=== PATIENT | male | born 1995 | race Caucasian/White ===

== ENCOUNTER → 2017-01-31 | Outpatient (CLI) | payer OTHER ==
[~2017-01-31] MED LIST: AMOX875T2 PO; FLON1SPR; HYDR-4274 PO; METHACHOLINE KIT (J7674) INH ONE; SERT50TA PO; TRAZO50TA PO; ZOLO50TA PO
--- NOTE | 2017-01-31 11:24 | PFTRPT ---
Site: [facility], [address] [place], [address] ID: [id number] Name: KAPIL MONSALVE Doctor: Ralph Waldron MD Tech: Azeb SWANSON RRT Age: 21 Sex: Male Race: Height: 67.50 Inches Weight: 230.00 Lbs BSA: 2.16 Diagnosis: R06.00 of albuterol for postbronchodilator. Pre-Bronch Post-Bronch Pred Actual %Pred Actual %Chng SPIROMETRY FVC (L) 5.16 4.57 88 4.50 -1 FEV1 (L) 4.31 4.03 93 3.90 -3 FEV1/FVC (%) 83 88 106 87 -1 FEF 25% (L/sec) 8.89 8.46 95 6.86 -18 FEF 50% (L/sec) 6.43 5.76 89 5.51 -4 FEF 75% (L/sec) 2.38 2.49 104 2.22 -11 FEF 25-75% (L/sec) 4.60 4.98 108 4.44 -10 FEF Max (L/sec) 9.60 8.98 93 7.63 -14 FIVC (L) 4.18 4.16 FIF 50% (L/sec) 5.68 4.48 78 5.76 28 FIF Max (L/sec) 4.59 5.85 27
== END ==
LOC: M CARPUL 10:26
PROVIDERS: ATTEND Internal Medicine Pulmonary Disease
DX: R06.00 Dyspnea, unspecified (principal)

== ENCOUNTER → 2017-05-03 | Outpatient (CLI) | payer OTHER ==
[~2017-05-03] VITALS: Ht 172.7 cm; Wt 111.1 kg
[~2017-05-03] MED LIST changes: +ABIL10TA9 PO; +AMBI10TA PO; -HYDR-4274 PO; +HYDR50TA70 PO; +LIDOCAINE 2% INJ 100 MG/5 ML SDV (FOR ANES.) As Ordered ONE; -METHACHOLINE KIT (J7674) INH ONE; +NS 1,000 ML IV ONE; +PROAAER10 INH; +PROPOFOL 500 MG/50 ML VIAL As Ordered ONE
--- NOTE | 2017-05-03 09:06 | ROOR ---
Patient Name: Ismael Haque Procedure Date: 05/03/2017 8:36 AM Date of : 1995 Age: 22 Room: [facility] Gender: Male Note Status: Finalized Procedure: Total Colonoscopy to Cecum + ileoscopy + Bx Indications: Clinically significant diarrhea of unexplained origin Providers: Louie Morales MD Referring MD: CHAD BONILLA MD Requesting Provider: Medicines: Monitored Anesthesia Care Complications: No immediate complications. Procedure: Pre-Anesthesia Assessment: - The heart rate, respiratory rate, oxygen saturations, blood pressure, adequacy of pulmonary ventilation, and response to care were monitored throughout the procedure. The Colonoscope was introduced through the anus and advanced to the cecum, identified by appendiceal orifice and ileocecal valve. The colonoscopy was performed without difficulty. The patient tolerated the procedure well. The quality of the bowel preparation was excellent. Findings: The perianal and digital rectal examinations were normal. Non-bleeding internal hemorrhoids were found during retroflexion. The hemorrhoids were small. No other significant abnormalities were identified in a careful examination of the remainder of the colon. The terminal ileum appeared normal. Biopsies for histology were taken with a cold forceps from the ascending colon, transverse colon and descending colon for evaluation of microscopic colitis. The exam was otherwise without abnormality on direct and retroflexion views. Impression: - Non-bleeding internal hemorrhoids. - The examined portion of the ileum was normal. - The examination was otherwise normal on direct and retroflexion views. - Biopsies were taken with a cold forceps from the ascending colon, transverse colon and descending colon for evaluation of microscopic colitis. - The exam was otherwise normal to the cecum. Recommendation: - Patient has a contact number available for emergencies. The signs and symptoms of potential delayed complications were discussed with the patient. Return to normal activities tomorrow. Written discharge instructions were provided to the patient. - High fiber diet. - Repeat colonoscopy at age 49 for screening purposes. - Check Portal Online for Path Results.([email or web address]) - Telephone GI clinic for pathology results in 1 week. - Continue present medications. - The findings and recommendations were discussed with the patient's family. Louie Morales MD Louie Morales MD 05/03/2017 9:06:00 AM This report has been signed electronically. Number of Addenda: 0 Note Initiated On: 05/03/2017 8:36 AM Estimated Blood Loss: Estimated blood loss: none.
[2017-05-03 09:30] VITALS: BP 130/75
== END | disposition home or self-care (01) ==
LOC: M OPP 07:42
PROVIDERS: ATTEND Internal Medicine Gastroenterology
DX: R19.7 Diarrhea, unspecified (principal); K64.8 Other hemorrhoids; K62.5 Hemorrhage of anus and rectum; K58.0 Irritable bowel syndrome with diarrhea; R06.02 Shortness of breath; K59.00 Constipation, unspecified; J45.909 Unspecified asthma, uncomplicated; G47.30 Sleep apnea, unspecified; R06.83 Snoring; F32.9 Major depressive disorder, single episode, unspecified; F41.9 Anxiety disorder, unspecified; F17.210 Nicotine dependence, cigarettes, uncomplicated; Z79.899 Other long term (current) drug therapy